=== PATIENT | female | born 1985 | race Caucasian/White ===

== ENCOUNTER 2021-05-29 07:15 | Inpatient (IN) | payer OTHER ==
[~2021-05-29 07:15] MED LIST: cefOXitin 2 GM Vial ONE
[2021-05-29] MEDS ORDERED: Succinylcholine 200 MG/10 ML MDV ONE (08:22)
[2021-05-29] MEDS ORDERED: Dexamethasone 4 MG/ML SDV ONE (08:22)
[2021-05-29] MEDS ORDERED: Ondansetron 4 MG/2 ML SDV ONE (08:22)
[2021-05-29] MEDS ORDERED: Rocuronium 50 MG/5 ML Vial ONE (08:22)
[2021-05-29] MEDS ORDERED: Glycopyrrolate 0.2 MG/ML 5 ML MDV ONE (08:22)
[2021-05-29] MEDS ORDERED: Neostigmine Methylsulfate 1 MG/ML 5 ML Syringe ONE (08:22)
[2021-05-29] MEDS ORDERED: Propofol 200 MG/20 ML SDV ONE (08:22)
[2021-05-29] MEDS ORDERED: fentaNYL 250 MCG/5 ML SDV ONE ×2 (08:24→11:28)
[2021-05-29] MEDS ORDERED: Lactated Ringers 1,000 ML ONE (08:25)
[2021-05-29] MEDS ORDERED: Acetaminophen 500 MG Tab PO ONE (08:45)
[2021-05-29] MEDS ORDERED: Scopolamine 1.5 MG Transdermal Patch TOP ONE (08:45)
[2021-05-29] MEDS ORDERED: Dextrose 5%-Lactated Ringers 1,000 ML IV SCH (09:30)
[2021-05-29] MEDS ORDERED: cefOXitin 2 GM in Sodium Chloride 0.9% 50 ML IV ONE (10:00)
[2021-05-29] MEDS ORDERED: Ketamine 500 MG/5 ML MDV IV SCH (10:15)
[2021-05-29] MEDS ORDERED: Magnesium Sulfate 3.5 GM in Sodium Chloride 0.9% 250 ML IV ONE (10:15)
[2021-05-29] MEDS ORDERED: Ketamine 16 MG in Sodium Chloride 0.9% 19.84 ML IV SCH (10:15)
[2021-05-29] MEDS ORDERED: Magnesium Sulfate 3 GM in Sodium Chloride 0.9% 100 ML IV SCH (10:15)
[2021-05-29] MEDS ORDERED: Cyclobenzaprine 10 MG Tab PO PRN (14:23)
[2021-05-29] MEDS ORDERED: Ondansetron 4 MG/2 ML SDV IVPUSH PRN (15:00)
[2021-05-29] MEDS ORDERED: HYDROmorphone 0.5 MG/0.5 ML Syringe IVPUSH PRN (15:00)
[2021-05-29] MEDS ORDERED: Acetaminophen 500 MG Tab PO PRN (15:00)
[2021-05-29] MEDS ORDERED: Pantoprazole 40 MG Vial IVPUSH SCH (15:00)
[2021-05-29] MEDS ORDERED: HYDROmorphone 1 MG/ML Syringe IV PRN (15:00)
[2021-05-29] MEDS ORDERED: Labetalol 20 MG/4 ML Syringe IVPUSH PRN (15:00)
[2021-05-29] MEDS ORDERED: diphenhydrAMINE 50 MG/ML SDV IVPUSH PRN (15:00)
[2021-05-29] MEDS ORDERED: Metoclopramide 10 MG/2 ML SDV IVPUSH PRN (15:00)
[2021-05-29] MEDS ORDERED: oxyCODONE 5 MG Tab PO PRN (15:00)
[2021-05-29] MEDS ORDERED: hydrOXYzine HCL 100 MG/2 ML SDV IM PRN (15:00)
[2021-05-29] MEDS ORDERED: Calcium Gluconate 10% 1 GM/10 ML SDV IVPUSH PRN (15:00)
[2021-05-29] MEDS: cefOXitin 2 GM in Sodium Chloride 0.9% 50 ML IV SCH ×2 (15:59→21:24)
[2021-05-29] MEDS ORDERED: MVI, Adult with Vitamin K 10 ML, Thiamine 200 MG, Zinc/Copper/Manganese/Selenium 1 ML i... IV SCH ×4 (16:00)
[2021-05-29] MEDS: traMADol 50 MG Tab PO PRN (16:40)
[2021-05-29] MEDS: Heparin Sodium 5,000 Units/ML Vial SUBCUT SCH (21:24)
[2021-05-29] MEDS: Acetaminophen 500 MG Tab PO SCH (21:24)
[2021-05-30] MEDS ORDERED: Iopamidol 612 MG/ML 50 ML SDV PO STA (03:12)
[2021-05-30] MEDS: traMADol 50 MG Tab PO PRN ×3 (03:45→18:47)
[2021-05-30] MEDS: cefOXitin 2 GM in Sodium Chloride 0.9% 50 ML IV SCH ×3 (03:46→15:10)
[2021-05-30] MEDS: Dextrose 5%-Lactated Ringers 1,000 ML IV SCH ×2 (03:47→07:34)
[2021-05-30] MEDS: Acetaminophen 500 MG Tab PO SCH ×3 (04:45→20:51)
[2021-05-30] MEDS: Heparin Sodium 5,000 Units/ML Vial SUBCUT SCH ×2 (07:35→20:52)
[2021-05-30] MEDS ORDERED: Dextrose 5%-Lactated Ringers 1,000 ML IV SCH (08:30)
[2021-05-30] MEDS: Escitalopram 20 MG Tab PO SCH (08:45)
[2021-05-30] MEDS: lamoTRIgine 100 MG Tab PO SCH (08:46)
[2021-05-30] MEDS: SCOPOLAMINE PATCH CHECK TOP SCH (08:46)
[2021-05-30] MEDS: Cetirizine 10 MG Tab PO SCH (08:46)
[2021-05-30] MEDS ORDERED: MVI, Adult with Vitamin K 10 ML, Thiamine 200 MG, Zinc/Copper/Manganese/Selenium 1 ML i... IV SCH ×4 (16:00)
[2021-05-30] MEDS ORDERED: Pantoprazole 40 MG Delayed-Release Granules 1 Packet PO SCH (16:30)
--- NOTE | 2021-05-30 16:34 | OR ---
DATE OF PROCEDURE: 05/29/2021 SURGEON: Donald Arriola MD PREOPERATIVE DIAGNOSIS: Morbid obesity. POSTOPERATIVE DIAGNOSES: 1. Morbid obesity. 2. Hepatomegaly. 3. Paraesophageal diaphragmatic hernia. PROCEDURE PERFORMED: Diagnostic laparoscopy with: 1. Laparoscopic sleeve gastrectomy (94423). 2. Jaspreet-Cut needle liver biopsy (31015). 3. Repair of paraesophageal diaphragmatic hernia (37705). ANESTHESIA: General. CROSSING GATEMAN: Karon Bowman PA-C INDICATION FOR PROCEDURE: This is a 35-year-old female presenting with longstanding morbid obesity and increasingly significant comorbidities. After preoperative evaluation and discussion, she wished to proceed with a sleeve gastrectomy. The procedure would involve use of the small bowel, essentially duodenal switch or gastric bypass that appeared to be ultimately contraindicated given the patient's history of ulcerative colitis and eventual need for a procedure such as a total proctocolectomy with ileoanal anastomosis at some point in the future, thus avoidance of small bowel would appear to be appropriate in this case. Potential risks of the procedure today, however, including bleeding, infection, injury to the underlying viscera, leaks from the staple line were all reviewed, and the patient wishes to proceed. DETAILS OF PROCEDURE: The patient was taken to the operating room, and after general endotracheal anesthesia was induced, she was placed in a lithotomy position and the abdomen prepped and draped. 15 cm inferior and 5 cm left of the xiphoid process, a transverse incision was made and the peritoneal cavity entered under direct vision with an Optiview trocar and inflated to 15 mmHg pressure with CO2. No underlying trocar insertion site injuries were seen. Bilateral transversus abdominis plane blocks were then placed. Five additional trocars were placed across the upper mid abdomen. The patient was noted to have quite marked hepatomegaly with the liver being grossly fatty infiltrated. Jaspreet-Cut needle biopsies were obtained from the left lobe of the liver. Minimal bleeding from the biopsy sites was controlled with electrocautery. At this point, the liver was retracted anteriorly. The patient was noted to have a significant paraesophageal diaphragmatic hernia containing some anterior prolapse of the gastric cardia and perigastric fat that was reduced and peritoneum divided and reflected downward. An anterior repair of the diaphragmatic hernia was then accomplished with 0 Ethibond sutures reinforced with PTFE pledgets. At this point, the mid greater curvature was divided away from the omentum with Harmonic scalpel. This dissection then continued proximally to include the short gastric vessels including highest and posterior short gastric vessels and there was a nice skeletonization of the left francisca of the diaphragm at this point. The division of the omentum then continued distally to a point 2 cm proximal to the pylorus. The line for the initial staple application beginning in the antrum was then marked out and continued underneath the incisura angularis so as to avoid overtightening of that area. This was left fairly wide to that region. The first 3 firings of the staple line were accomplished with ELMA black loads. Following this, then a 32-Serbian suction tube was then placed orally across the esophagogastric junction along the lesser curvature of the stomach and then placed on suction as the stomach was pulled up snugly on the lesser curvature side of the tube. The remainder of the sleeve gastrectomy was then accomplished with ELMA black loads reinforced with PTFE pledgets. At that point, the staple line appeared to be intact. The gastroesophageal junction was then closed with some fibrin sealant and the omentum then tacked up over that area as well. The remainder of the staple line then had some additional fibrin sealant placed over it, and a leak test was accomplished with injection of air into the orogastric tube which distended the remaining stomach with no bleeding or air leak site being identified. At this point, the gastric specimen was retrieved through the left lateral trocar site, and the abdomen was then further irrigated with some antibiotic-containing saline solution. A single Vineet-Arce drain was then placed through the left lateral trocar site up against the area of esophagogastric junction, and from there, into the splenic fossa. The trocars were then sequentially removed and the peritoneal cavity deflated. The incisions were closed with some 4-0 Vicryl skin stitch and the drain affixed with a 4-0 Vicryl stitch as well. The patient was taken to the recovery room in satisfactory condition. Donald Arriola MD Job #: [id number]
--- NOTE | 2021-05-30 17:16 | PN ---
DATE OF SERVICE: 05/30/2021 This patient is postop day 1 from a sleeve gastrectomy and hiatal hernia repair. Clinically, she has done well overnight. Urine output has been satisfactory. Blood pressure is a little bit high this morning, but I think it will come down as she spontaneously diureses. Her upper GI x-ray looks good and ZAC drain looks clear. The patient has been tolerating the liquid diet satisfactorily. Go up to a step 2 diet today, back down the IV rate, maximize activity, and work with pulmonary toilet. Donald Arriola MD Job #: [id number]
[2021-05-31] MEDS: traMADol 50 MG Tab PO PRN ×2 (02:30→11:02)
[2021-05-31] MEDS: Acetaminophen 500 MG Tab PO SCH (05:08)
[2021-05-31] MEDS: Heparin Sodium 5,000 Units/ML Vial SUBCUT SCH (07:50)
[2021-05-31] MEDS: Escitalopram 20 MG Tab PO SCH (08:35)
[2021-05-31] MEDS: lamoTRIgine 100 MG Tab PO SCH (08:35)
[2021-05-31] MEDS: Cetirizine 10 MG Tab PO SCH (08:35)
[2021-05-31] MEDS: SCOPOLAMINE PATCH CHECK TOP SCH (08:37)
[2021-05-31] MEDS ORDERED: Cyanocobalamin (Vitamin B12) 1,000 MCG/ML SDV IM ONE (09:00)
--- NOTE | 2021-05-31 11:01 | DISCH ---
FINAL DIAGNOSES: 1. Morbid obesity. 2. Marked hepatomegaly. 3. Paraesophageal diaphragmatic hernia. 4. History of obstructive sleep apnea. 5. History of depression and anxiety. 6. Ulcerative colitis. 7. Urolithiasis. 8. Polycystic ovary syndrome. OPERATIVE PROCEDURE: This will be on 05/29/2021, diagnostic laparoscopy with: 1. Laparoscopic sleeve gastrectomy. 2. Jaspreet-Cut needle liver biopsy. 3. Repair of paraesophageal diaphragmatic hernia. SUMMARY: This is a 35-year-old female presenting with longstanding morbid obesity, increasingly significant comorbidities. After preoperative evaluation and discussion, she wished to proceed with a sleeve gastrectomy. This will be the preferred approach given the patient's history of ulcerative colitis and potential need for procedure such as a total proctocolectomy at some point. At any rate, the patient had marked hepatomegaly and liver biopsy performed in the hospital with concurrent repair of paraesophageal diaphragmatic hernia. Postoperatively, the patient has done very well. There are no significant problems. Oral intake is satisfactory. She will be discharged to home on her usual medications plus Tylenol 1 g q.6 hours p.r.n. and Ultram 50 mg q.6 hours p.r.n. pain. She will be instructed to stay on the liquid diet for 1 month postoperatively and follow up will be with Karon Bowman at [facility] on 06/08/2021. Job #: [id number]
--- NOTE | 2021-06-01 09:18 | CR ---
[facility] [employer] HISTORY: Postbariatric surgery FINDINGS: Patient swallowed water-soluble contrast. Upright views of the abdomen show no evidence of extravasation or obstruction. There is a surgical drain in the left upper quadrant IMPRESSION: Status post bariatric surgery No extravasation or obstruction seen
== END 2021-05-31 12:30 | disposition home or self-care (01) | DRG 620 ==
LOC: JP.SDS 07:51 → JP.SDSSCHI 07:51 → EDSTATUS 10:00 → JP.MS 13:25
PROVIDERS: ADMIT Surgery; ATTEND Surgery
PROC: 0DB64Z3 Excision of Stomach, Percutaneous Endoscopic Approach, Vertical (ICD-10-PCS; principal; 2021-05-29)
PROC: 0FB24ZX Excision of Left Lobe Liver, Percutaneous Endoscopic Approach, Diagnostic (ICD-10-PCS; 2021-05-29)
PROC: 0BQT4ZZ Repair Diaphragm, Percutaneous Endoscopic Approach (ICD-10-PCS; 2021-05-29)
DX: E66.01 Morbid (severe) obesity due to excess calories (principal); K51.90 Ulcerative colitis, unspecified, without complications; R16.0 Hepatomegaly, not elsewhere classified; K44.9 Diaphragmatic hernia without obstruction or gangrene; E28.2 Polycystic ovarian syndrome; N20.9 Urinary calculus, unspecified; F32.9 Major depressive disorder, single episode, unspecified; Z87.01 Personal history of pneumonia (recurrent); Z90.49 Acquired absence of other specified parts of digestive tract; Z88.0 Allergy status to penicillin; Z88.2 Allergy status to sulfonamides; Z68.41 Body mass index [BMI] 40.0-44.9, adult
CPT/HCPCS: 36415; 74240; 74240-26; 80053; 81025; 83036; 83735; 84100; 85027; 86850; 86900; 86901; 94762; A9270-GY; C9113; J0171; J0330; J0694; J1100; J1644; J2405; J2704; J2710; J2795; J3010; J3411; J3420; J3475; J3490; J7050; J7120; J7121; J7500; Q9967